=== PATIENT | female | born 1980 ===

== ENCOUNTER 2018-02-19 06:24 | Inpatient (IN) | payer OTHER ==
[~2018-02-19] VITALS: Ht 162.6 cm; Wt 98.0 kg
[2018-02-19] MEDS ORDERED: PRENATAL TABLE1 EAC1 PO (08:30)
[2018-02-19] MEDS ORDERED: LOVENOX40 MG/0.4 SUBCUTANEO (08:31)
[2018-02-19] MEDS ORDERED: VALTREX1000 MG PO (08:33)
== END 2018-02-21 13:39 | DRG 807 ==
LOC: LDR 06:24 → OB/GYN 06:24
PROC: 10E0XZZ Delivery of Products of Conception, External Approach (ICD-10-PCS; principal; 2018-02-19)
PROC: 0KQM0ZZ Repair Perineum Muscle, Open Approach (ICD-10-PCS; 2018-02-19)
PROC: 4A1HXCZ Monitoring of Products of Conception, Cardiac Rate, External Approach (ICD-10-PCS; 2018-02-19)
PROC: 3E033VJ Introduction of Other Hormone into Peripheral Vein, Percutaneous Approach (ICD-10-PCS; 2018-02-19)
DX: O70.1 Second degree perineal laceration during delivery (principal); Z37.0 Single live birth; Z3A.38 38 weeks gestation of pregnancy